=== PATIENT | male | born 1995 | race Caucasian/White ===

== ENCOUNTER 2016-07-29 23:19 | Emergency (ER) | payer BC ==
[~2016-07-29] VITALS: Ht 180.3 cm; Wt 80.0 kg
[~2016-07-29 23:19] MED LIST: CEPH500C3 PO; CIPR500T4 PO; IBUP800T23 PO; METR-1 PO; ZOFR4TAB3 SL
[2016-07-29 23:21] VITALS: BP 137/84; PULSE 118; RESP 16; TEMP 97.6; O2SAT 100
[2016-07-30 01:22] VITALS: BP 124/74; PULSE 117; RESP 18; O2SAT 100
[2016-07-30] MEDS ORDERED: SODIUM CHLORIDE 0.9% FLUSH 5 ML FLUSH IVF PRN (01:30)
[2016-07-30] MEDS ORDERED: diphenhydrAMINE HCL 50 MG/ML VIAL IVP ONE (01:30)
[2016-07-30] MEDS ORDERED: methylPREDNISolone SOD SUCC 125 MG/2 ML VIAL IVP ONE (01:30)
--- NOTE | 2016-07-30 01:31 | PD ---
HPI Chief Complaint: Numbness/Tingling Time Seen by Provider: 01:25 Travel History International Travel<30 days: No Contact w/Intl Traveler<30days: No Traveled to known affect area: No History of Present Illness HPI 20-year-old male with history of no significant past medical issues, presents to the ER today because he states he was eating pretzels tonight and started having numbness in the left corner of his mouth and swelling in that area and tingling. He states that it got worse for a while and now has an subsiding in the ER. He denies any rash, shortness of breath, difficulty swallowing, or any other symptoms. He has had the same pretzels in the past without reaction. He does not know any other new foods or exposures. Modifying Factors: None Associated Signs & Symptoms: Swelling, numbness and tingling in the left corner of his lips Risk Factors: None PFSH Past Medical History Medical History: Denies Significant Hx Diminished Hearing: No Immunizations Current: Yes Social History Alcohol Use: No Tobacco Use: No Substance Use: No Allergies-Medications (Allergen,Severity, Reaction): Coded Allergies: No Known Allergies (Unverified , 07/29/16) Reported Meds & Prescriptions Reported Meds & Active Scripts Active Review of Systems Except as stated in HPI: all other systems reviewed are Neg Physical Exam Narrative GENERAL: Well-nourished, well-developed young white male patient in no acute distress. SKIN: Warm and dry. HEAD: Normocephalic. EYES: No scleral icterus. No injection or drainage. ENT: Mucosa pink and moist. No erythema or exudates. No uvular edema. No uvular , palatal, or tonsillar deviation. Airway patent. No signs of angioedema. NECK: Supple, trachea midline. CARDIOVASCULAR: Regular rate and rhythm without murmurs, gallops, or rubs. RESPIRATORY: Breath sounds equal bilaterally. No accessory muscle use. GASTROINTESTINAL: Abdomen soft, non-tender, nondistended. MUSCULOSKELETAL: No cyanosis, or edema. BACK: Nontender without obvious deformity. No CVA tenderness. Data Data Last Documented VS Vital Signs Date Time Temp Pulse Resp B/P Pulse Ox O2 Delivery O2 Flow Rate FiO2 07/30/16 01:22 117 18 124/74 100 Room Air 07/29/16 23:21 97.6 Orders Basic Metabolic Panel (Bmp) (07/30/16 01:25) Ecg Monitoring (07/30/16 01:25) Iv Access Insert/Monitor (07/30/16 01:25) Oximetry (07/30/16 01:25) Diphenhydramine Inj (Benadryl Inj) (07/30/16 01:30) Methylprednisolone So Succ Inj (Solumedr (07/30/16 01:30) Sodium Chloride 0.9% Flush (Ns Flush) (07/30/16 01:30) Labs Laboratory Tests Test 07/30/16 01:25 Sodium Level 142 MEQ/L Potassium Level 4.0 MEQ/L Chloride Level 106 MEQ/L Carbon Dioxide Level 29.7 MEQ/L Anion Gap 6 MEQ/L Blood Urea Nitrogen 12 MG/DL Creatinine 0.90 MG/DL Estimat Glomerular Filtration 108 ML/MIN Rate Random Glucose 78 MG/DL Calcium Level 8.9 MG/DL MDM Medical Decision Making Medical Screen Exam Complete: Yes Emergency Medical Condition: Yes Medical Record Reviewed: Yes Differential Diagnosis Angioedema versus paresthesia's versus electrolyte abnormalities Narrative Course There are no signs of angioedema. Electrolytes are normal. I have given the patient Solu-Medrol and Benadryl in the ER. He was observed for an hour after having been in the ER for 3 hours already with no signs of worsening in angioedema. At this point, I am not convinced that this is an allergic reaction. However, by the time the patient was seen by me his symptoms had already been subsiding. The plan would be to give him further prednisone and Benadryl as precaution and have him avoid the pretzels for now. Follow-up with primary care physician. Return for any worsening in symptoms as necessary. The plan was discussed with him and he states understanding. Diagnosis Primary Impression: Allergic reaction Med/Other Pt SpecificInfo: Prescription(s) given Scripts Diphenhydramine (Benadryl Allergy)25 Mg Tab25 Mg PO Q6H PRN (ALLERGIES) #15 TAB Ref 0 Prov:Douglas Marroquin MD 07/30/16 Prednisone 50 Mg Tab50 Mg PO DAILY #3 TAB Ref 0 Prov:Douglas Marroquin MD 07/30/16 Disposition: DISCHARGE HOME Condition: Stable Douglas Marroquin MD Jul 30, 2016 01:31
[2016-07-30 02:15] LABS: BICARBONATE 29.7 MEQ/L (21.0-32.0)
[2016-07-30] MEDS ORDERED: PRED50 PO (02:32)
[2016-07-30] MEDS ORDERED: BENA25TA3 PO (02:32)
[2016-07-30 03:16] VITALS: BP 107/55
== END 2016-07-30 03:15 | disposition home or self-care (01) ==
LOC: NEPC 23:19
DX: T78.40XA Allergy, unspecified, initial encounter (principal); R22.0 Localized swelling, mass and lump, head; R20.2 Paresthesia of skin
CPT/HCPCS: 80048; 96374; 96375; 99284; J1200; J2930

== ENCOUNTER 2017-11-04 21:16 | Emergency (ER) | payer BC ==
[~2017-11-04] VITALS: Ht 180.3 cm; Wt 80.0 kg
[~2017-11-04 21:16] MED LIST changes: +BENA25TA3 PO; -CEPH500C3 PO; -CIPR500T4 PO; -IBUP800T23 PO; -METR-1 PO; +PRED50 PO; -ZOFR4TAB3 SL
[2017-11-04 21:44] VITALS: BP 156/82; PULSE 120; RESP 16; TEMP 98.1; O2SAT 99
[2017-11-04] MEDS ORDERED: ALPR.5 PO (21:44)
[2017-11-04] MEDS ORDERED: SODIUM CHLOR 0.9% 1000 ML INJ 1,000 ML IV SCH (22:03)
[2017-11-04 22:07] VITALS: RESP 24; O2SAT 100
--- NOTE | 2017-11-04 22:13 | PD ---
HPI Chief Complaint: Cardiac Complaint Time Seen by Provider: 21:49 Travel History International Travel<30 days: No Contact w/Intl Traveler<30days: No Traveled to known affect area: No History of Present Illness HPI This is a 22-year-old male who presents for evaluation of rapid heart rate and shortness of breath. He reports over the past 5 days he has had intermittent episodes the last 1-3 hours at a time which he feels rapid heart rate with associated dyspnea. Current episode started 3 hours prior to arrival and he was watching TV and eating cake. Symptoms are moderate with no obvious aggravating or relieving factors. Reports some associated dry mouth as well. He tried using a old tablet of Xanax that he had from several years ago but symptoms persisted which prompted evaluation. He denies chest pain, abdominal pain, nausea or vomiting, fevers or chills, myalgias, leg swelling. He reports that he did just return from a road trip to [place] in [place]. He reports that he was in the car for several hours a day during this time. He denies any use of caffeine products in the past week. He denies any illicit drug use. He has no other complaints at this time. [facility] Past Medical History Anxiety: Yes Diminished Hearing: No Immunizations Current: Yes Tetanus Vaccination: Unknown Influenza Vaccination: No Social History Alcohol Use: No Tobacco Use: No Substance Use: No Allergies-Medications (Allergen,Severity, Reaction): Coded Allergies: No Known Allergies (Unverified Adverse Reaction, Unknown, 11/04/17) Reported Meds & Prescriptions Reported Meds & Active Scripts Active Reported Xanax (Alprazolam) 0.5 Mg Tab 0.5 Mg PO Q4H PRN Review of Systems Except as stated in HPI: all other systems reviewed are Neg Physical Exam Narrative GENERAL: This is a well-developed well-nourished male who appears anxious on initial examination. SKIN: Warm and dry. HEAD: Atraumatic. Normocephalic. EYES: Pupils equal and round. No scleral icterus. No injection or drainage. ENT: No nasal bleeding or discharge. Mucous membranes pink and moist. NECK: Trachea midline. No JVD. CARDIOVASCULAR: Regular rate and rhythm. No murmur appreciated. RESPIRATORY: No accessory muscle use. Clear to auscultation. Breath sounds equal bilaterally. GASTROINTESTINAL: Abdomen soft, non-tender, nondistended. Hepatic and splenic margins not palpable. MUSCULOSKELETAL: No obvious deformities. No clubbing. No cyanosis. No edema. NEUROLOGICAL: Awake and alert. No obvious cranial nerve deficits. Motor grossly within normal limits. Normal speech. Data Data Last Documented VS Vital Signs Date Time Temp Pulse Resp B/P (MAP) Pulse Ox O2 Delivery O2 Flow Rate FiO2 11/04/17 22:07 24 100 Room Air 11/04/17 21:46 120 11/04/17 21:44 98.1 156/82 (106) Orders Orders Electrocardiogram (11/04/17 22:03) Basic Metabolic Panel (Bmp) (11/04/17 22:03) Complete Blood Count With Diff (11/04/17 22:03) D-Dimer (11/04/17 22:03) Magnesium (Mg) (11/04/17 22:03) Chest, Single Ap (11/04/17 22:03) Ecg Monitoring (11/04/17 22:03) Bilateral Bp Monitoring (11/04/17 22:03) Iv Access Insert/Monitor (11/04/17 22:03) Oximetry (11/04/17 22:03) Oxygen Administration (11/04/17 22:03) Sodium Chloride 0.9% Flush (Ns Flush) (11/04/17 22:15) Thyroid Stimulating Hormone (11/04/17 22:03) Lorazepam Inj (Ativan Inj) (11/04/17 22:15) Sodium Chlor 0.9% 1000 Ml Inj (Ns 1000 M (11/04/17 22:03) Drug Screen, Random Urine (11/04/17 22:03) Potassium Chloride (Kcl) (11/04/17 23:00) Ed Discharge Order (11/04/17 22:59) Labs Laboratory Tests Test 11/04/17 22:00 11/04/17 22:05 White Blood Count 8.4 TH/MM3 Red Blood Count 5.06 MIL/MM3 Hemoglobin 15.1 GM/DL Hematocrit 43.8 % Mean Corpuscular Volume 86.6 FL Mean Corpuscular Hemoglobin 29.9 PG Mean Corpuscular Hemoglobin Concent 34.5 % Red Cell Distribution Width 13.3 % Platelet Count 214 TH/MM3 Mean Platelet Volume 9.2 FL Neutrophils (%) (Auto) 69.4 % Lymphocytes (%) (Auto) 20.3 % Monocytes (%) (Auto) 8.2 % Eosinophils (%) (Auto) 1.7 % Basophils (%) (Auto) 0.4 % Neutrophils # (Auto) 5.8 TH/MM3 Lymphocytes # (Auto) 1.7 TH/MM3 Monocytes # (Auto) 0.7 TH/MM3 Eosinophils # (Auto) 0.1 TH/MM3 Basophils # (Auto) 0.0 TH/MM3 CBC Comment DIFF FINAL Differential Comment D-Dimer Quantitative (PE/DVT) LESS THAN 0.19 MG/L FEU Blood Urea Nitrogen 12 MG/DL Creatinine 0.99 MG/DL Random Glucose 125 MG/DL Calcium Level 9.3 MG/DL Magnesium Level 2.1 MG/DL Sodium Level 139 MEQ/L Potassium Level 3.2 MEQ/L Chloride Level 103 MEQ/L Carbon Dioxide Level 27.6 MEQ/L Anion Gap 8 MEQ/L Estimat Glomerular Filtration Rate 95 ML/MIN Thyroid Stimulating Hormone 3rd Gen 2.120 uIU/ML Urine Opiates Screen NEG Urine Barbiturates Screen NEG Urine Amphetamines Screen NEG Urine Benzodiazepines Screen NEG Urine Cocaine Screen NEG Urine Cannabinoids Screen NEG MDM Medical Decision Making Medical Screen Exam Complete: Yes Emergency Medical Condition: Yes Medical Record Reviewed: Yes Differential Diagnosis Anxiety, sinus tachycardia, PVCs, PACs, atrial fibrillation, pulmonary embolism , spontaneous pneumothorax, sympathomimetic drug abuse, anticholinergic syndrome , electrolyte abnormality Narrative Course 20-year-old male presents with intermittent rapid heart rate and shortness of breath for the past 3 days. On initial examination he does appear anxious, he requests that we do not allow him to . The patient was placed on ECG monitoring pulse oximetry. A 12 EKG was obtained revealing sinus tachycardia with a rate of 110, incomplete right bundle branch block. Lab work, chest x- ray been ordered. The patient will be given IV fluids and Ativan. 2300: Upon reexamination the patient does feel improved, he still feels slightly anxious. His heart rate is 100. His lab work is been reviewed. His potassium is 3.4 otherwise his lab work is unremarkable. He was given 40 mEq of potassium chloride. His chest x-ray is normal. At this point in time the plan would be to have him follow-up tomorrow as scheduled with a new primary care physician. He will be given a copy of his lab work. Discussed signs and symptoms that would warrant returning to the emergency room. Diagnosis Primary Impression: Tachycardia Additional Impressions: Anxiety Hypokalemia Additional Instructions: Please provide the patient a copy of all of his lab work upon discharge. Follow-up with primary care physician as scheduled. Avoid caffeinated substances. Return for any acutely new or worsening symptoms. Med/Other Pt SpecificInfo: No Change to Meds Disposition: 01 DISCHARGE HOME Condition: Stable Gamal Centeno Nov 04, 2017 22:13
[2017-11-04] MEDS ORDERED: LORazepam 2 MG/ML VIAL IV PUSH ONE (22:15)
[2017-11-04] MEDS ORDERED: SODIUM CHLORIDE 0.9% FLUSH 10 ML FLUSH IVF PRN (22:15)
--- NOTE | 2017-11-04 22:25 | RADRPT ---
EXAM DATE: 11/04/2017 10:22 PM EDT AGE/SEX: 22 years / Male INDICATIONS: Shortness of breath and chest pain. CLINICAL DATA: This is the patient's initial encounter. Patient reports that signs and symptoms have been present for 4 - 6 days and indicates a pain score of 5/10. MEDICAL/SURGICAL HISTORY: None. None. COMPARISON: No prior exams available for comparison. FINDINGS: A single AP view of the chest demonstrates the lungs to be symmetrically aerated without evidence of mass, infiltrate or effusion. The cardiomediastinal contours are unremarkable. Osseous structures a re intact. CONCLUSION: Negative for acute process Electronically signed by: Elias Soto MD 11/04/2017 10:23 PM EDT
[2017-11-04 22:27] LABS: AUTOMATED NEUTROPHIL # 5.8 TH/MM3 (1.8-7.7); BASOPHIL % 0.4 % (0.0-2.0); EOSINOPHIL # 0.1 TH/MM3 (0-0.4); EOSINOPHIL % 1.7 % (0.0-4.0); HEMATOCRIT 43.8 % (39.0-51.0); HEMOGLOBIN 15.1 GM/DL (13.0-17.0); LYMPH % 20.3 % (9.0-44.0); LYMPHOCYTE # 1.7 TH/MM3 (1.0-4.8); MEAN CELL VOLUME 86.6 FL (80.0-100.0); MEAN CORPUSCULAR HEMOGLOBIN 29.9 PG (27.0-34.0); MEAN CORPUSCULAR HGB CONC 34.5 % (32.0-36.0); MEAN PLATELET VOLUME 9.2 FL (7.0-11.0); MONO % 8.2 % (0.0-8.0); MONOCYTE # 0.7 TH/MM3 (0-0.9); NEUT % 69.4 % (16.0-70.0); PLATELET COUNT 214 TH/MM3 (150-450); RED BLOOD COUNT 5.06 MIL/MM3 (4.50-5.90); RED CELL DISTRIBUTION WIDTH 13.3 % (11.6-17.2); WHITE BLOOD COUNT 8.4 TH/MM3 (4.0-11.0)
[2017-11-04 22:44] LABS: BICARBONATE 27.6 MEQ/L (21.0-32.0); CALCIUM 9.3 MG/DL (8.5-10.1); CREATININE 0.99 MG/DL (0.60-1.30); MAGNESIUM 2.1 MG/DL (1.5-2.5)
[2017-11-04] MEDS ORDERED: POTASSIUM CHLORIDE 20 MEQ CONTROLLED RELEASE TAB PO ONE (23:00)
--- NOTE | 2017-11-04 23:13 | PD ---
Data Data Last Documented VS Vital Signs Date Time Temp Pulse Resp B/P (MAP) Pulse Ox O2 Delivery O2 Flow Rate FiO2 11/04/17 22:07 24 100 Room Air 11/04/17 21:46 120 11/04/17 21:44 98.1 156/82 (106) Orders Orders Electrocardiogram (11/04/17 22:03) Basic Metabolic Panel (Bmp) (11/04/17 22:03) Complete Blood Count With Diff (11/04/17 22:03) D-Dimer (11/04/17 22:03) Magnesium (Mg) (11/04/17 22:03) Chest, Single Ap (11/04/17 22:03) Ecg Monitoring (11/04/17 22:03) Bilateral Bp Monitoring (11/04/17 22:03) Iv Access Insert/Monitor (11/04/17 22:03) Oximetry (11/04/17 22:03) Oxygen Administration (11/04/17 22:03) Sodium Chloride 0.9% Flush (Ns Flush) (11/04/17 22:15) Thyroid Stimulating Hormone (11/04/17 22:03) Lorazepam Inj (Ativan Inj) (11/04/17 22:15) Sodium Chlor 0.9% 1000 Ml Inj (Ns 1000 M (11/04/17 22:03) Drug Screen, Random Urine (11/04/17 22:03) Potassium Chloride (Kcl) (11/04/17 23:00) Ed Discharge Order (11/04/17 22:59) Labs Laboratory Tests Test 11/04/17 22:00 11/04/17 22:05 White Blood Count 8.4 TH/MM3 Red Blood Count 5.06 MIL/MM3 Hemoglobin 15.1 GM/DL Hematocrit 43.8 % Mean Corpuscular Volume 86.6 FL Mean Corpuscular Hemoglobin 29.9 PG Mean Corpuscular Hemoglobin Concent 34.5 % Red Cell Distribution Width 13.3 % Platelet Count 214 TH/MM3 Mean Platelet Volume 9.2 FL Neutrophils (%) (Auto) 69.4 % Lymphocytes (%) (Auto) 20.3 % Monocytes (%) (Auto) 8.2 % Eosinophils (%) (Auto) 1.7 % Basophils (%) (Auto) 0.4 % Neutrophils # (Auto) 5.8 TH/MM3 Lymphocytes # (Auto) 1.7 TH/MM3 Monocytes # (Auto) 0.7 TH/MM3 Eosinophils # (Auto) 0.1 TH/MM3 Basophils # (Auto) 0.0 TH/MM3 CBC Comment DIFF FINAL Differential Comment D-Dimer Quantitative (PE/DVT) LESS THAN 0.19 MG/L FEU Blood Urea Nitrogen 12 MG/DL Creatinine 0.99 MG/DL Random Glucose 125 MG/DL Calcium Level 9.3 MG/DL Magnesium Level 2.1 MG/DL Sodium Level 139 MEQ/L Potassium Level 3.2 MEQ/L Chloride Level 103 MEQ/L Carbon Dioxide Level 27.6 MEQ/L Anion Gap 8 MEQ/L Estimat Glomerular Filtration Rate 95 ML/MIN Thyroid Stimulating Hormone 3rd Gen 2.120 uIU/ML Urine Opiates Screen NEG Urine Barbiturates Screen NEG Urine Amphetamines Screen NEG Urine Benzodiazepines Screen NEG Urine Cocaine Screen NEG Urine Cannabinoids Screen NEG MDM Supervised Visit with REUBEN: Yes Narrative Course The history, exam, and medical decision-making in the associated mid-level provider note were completed with my assistance. I reviewed and agree with the findings presented. I attest that I had a [id number] encounter with the patient on the same day, and personally performed and documented my assessment and findings in the medical record. *My assessment and Findings: While 22-year-old male, anxiety palpitations feeling funny. Etiology is unclear. Heart rate is sinus tach elevated 120. Looks well. No thyroid disease. No DVT or PE. Patient is a history of anxiety but has not had trouble in years. Does not feel like he has been more anxious recently. His appointment with his primary care physician tomorrow. Heart rate improved after fluids and a dose of Ativan here. Recommend close outpatient follow-up as planned with his primary physician. Diagnosis Primary Impression: Tachycardia Additional Impressions: Anxiety Hypokalemia Additional Instruction: Please provide the patient a copy of all of his lab work upon discharge. Follow-up with primary care physician as scheduled. Avoid caffeinated substances. Return for any acutely new or worsening symptoms. Disposition: 01 DISCHARGE HOME Condition: Stable Jozef Griffith MD Nov 04, 2017 23:13
[2017-11-05 00:27] VITALS: PULSE 95
--- NOTE | 2017-11-05 09:08 | EKG ---
Date Performed: 11/04/2017 Time Performed: 21:52:30 PTAGE: 22 years EKG: SINUS TACHYCARDIA SINUS ARRYTHMIA INCOMPLETE RIGHT BUNDLE BRANCH BLOCK ABNORMAL RHYTHM ECG NO PREVIOUS TRACING DOCTOR: Jozef Feliciano Interpretating Date/Time 11/05/2017 09:07:32
== END 2017-11-05 00:31 | disposition home or self-care (01) ==
LOC: NEPC 21:16
DX: R00.0 Tachycardia, unspecified (principal); F41.9 Anxiety disorder, unspecified; E87.6 Hypokalemia; R06.02 Shortness of breath; Z79.899 Other long term (current) drug therapy
CPT/HCPCS: 71045; 80048; 80307; 83735; 84443; 85025; 85379; 93005; 96361; 96374; 99285; J2060; J7030

== ENCOUNTER 2017-11-12 07:56 | Emergency (ER) | payer BC ==
[~2017-11-12] VITALS: Ht 180.3 cm; Wt 80.0 kg
[~2017-11-12 07:56] MED LIST changes: +ALPR.5 PO; -BENA25TA3 PO; -PRED50 PO
[2017-11-12 07:58] VITALS: BP 142/97; PULSE 108; RESP 20; TEMP 98.3; O2SAT 100
[2017-11-12 08:22] VITALS: BP 143/103; PULSE 94; RESP 18; O2SAT 99
--- NOTE | 2017-11-12 08:47 | PD ---
HPI Chief Complaint: Respiratory Symptoms Time Seen by Provider: 08:32 Travel History International Travel<30 days: No Contact w/Intl Traveler<30days: No Traveled to known affect area: No History of Present Illness HPI Patient presents to the emergency department complaining of dizziness and shortness of breath. Also reports constipation 3 days. States that a week and a half ago he was waterskiing and fell and had a frontal headache. Did not pass out and did not seek follow-up care. Says that he feels like the right side of his forehead is moving, questionable vertigo/room spinning. Normal gait and tinnitus which is normal for him. Denies chest pain, fever, chills, nausea , vomiting, vision change, numbness, tingling, lower extremity edema, but states that his face feels hot in his neck with throbbing anterior leaf for the past week. Also reports recent travel one half weeks ago, he did both a [address] Patient has a history of anxiety and has been increased anxiety attacks in the past couple weeks. States that the shortness of breath could have been an anxiety attack triggered by the vertigo. PFSH Past Medical History Atrial Fibrillation: Yes Anxiety: Yes Diminished Hearing: No Integumentary: Yes (acne) Immunizations Current: Yes Tetanus Vaccination: Unknown Influenza Vaccination: Yes Social History Alcohol Use: No Tobacco Use: No Substance Use: No Allergies-Medications (Allergen,Severity, Reaction): Coded Allergies: No Known Allergies (Unverified Adverse Reaction, Unknown, 11/04/17) Reported Meds & Prescriptions Reported Meds & Active Scripts Active Meclizine (Meclizine HCl) 25 Mg Tab 25 Mg PO Q6HR PRN 3 Days Reported Xanax (Alprazolam) 0.5 Mg Tab 0.5 Mg PO Q4H PRN Review of Systems Except as stated in HPI: all other systems reviewed are Neg Physical Exam Narrative GENERAL: No acute distress. SKIN: Focused skin assessment warm/dry. HEAD: Atraumatic. Normocephalic. EYES: Pupils dilated and equal and round. No scleral icterus. Intraocular muscles intact bilaterally. No injection or drainage. ENT: No nasal bleeding or discharge. Mucous membranes pink and moist. Normal TMs bilaterally NECK: Trachea midline. No JVD. Supple, full range of motion. CARDIOVASCULAR: Regular rate and rhythm. No murmur appreciated. RESPIRATORY: No accessory muscle use. Clear to auscultation. Breath sounds equal bilaterally. GASTROINTESTINAL: Abdomen soft, non-tender, nondistended. Hepatic and splenic margins not palpable. MUSCULOSKELETAL: No obvious deformities. No clubbing. No cyanosis. No edema. NEUROLOGICAL: Awake and alert. No obvious cranial nerve deficits. Motor grossly within normal limits. Normal speech. 5 out of 5 bilateral upper and lower extremity. PSYCHIATRIC: Appropriate mood and affect; insight and judgment normal. Data Data Last Documented VS Vital Signs Date Time Temp Pulse Resp B/P (MAP) Pulse Ox O2 Delivery O2 Flow Rate FiO2 11/12/17 08:49 99 Room Air 11/12/17 08:22 72 18 11/12/17 07:58 98.3 Orders Orders Electrocardiogram (11/12/17 08:42) Complete Blood Count With Diff (11/12/17 08:42) Comprehensive Metabolic Panel (11/12/17 08:42) Ckmb (Isoenzyme) Profile (11/12/17 08:42) Troponin I (11/12/17 08:42) Prothrombin Time / Inr (Pt) (11/12/17 08:42) Act Partial Throm Time (Ptt) (11/12/17 08:42) Urinalysis - C+S If Indicated (11/12/17 08:42) D-Dimer (11/12/17 08:42) Chest, Single Ap (11/12/17 08:42) Ct Brain W/O Iv Contrast(Rout) (11/12/17 08:42) Iv Access Insert/Monitor (11/12/17 08:42) Ecg Monitoring (11/12/17 08:42) Oximetry (11/12/17 08:42) Drug Screen, Random Urine (11/12/17 08:42) Meclizine (Antivert) (11/12/17 10:15) Labs Laboratory Tests Test 11/12/17 08:55 White Blood Count 5.4 TH/MM3 Red Blood Count 5.25 MIL/MM3 Hemoglobin 15.6 GM/DL Hematocrit 45.8 % Mean Corpuscular Volume 87.3 FL Mean Corpuscular Hemoglobin 29.7 PG Mean Corpuscular Hemoglobin Concent 34.0 % Red Cell Distribution Width 13.4 % Platelet Count 203 TH/MM3 Mean Platelet Volume 9.3 FL Neutrophils (%) (Auto) 61.2 % Lymphocytes (%) (Auto) 26.3 % Monocytes (%) (Auto) 9.9 % Eosinophils (%) (Auto) 2.1 % Basophils (%) (Auto) 0.5 % Neutrophils # (Auto) 3.3 TH/MM3 Lymphocytes # (Auto) 1.4 TH/MM3 Monocytes # (Auto) 0.5 TH/MM3 Eosinophils # (Auto) 0.1 TH/MM3 Basophils # (Auto) 0.0 TH/MM3 CBC Comment DIFF FINAL Differential Comment Prothrombin Time 10.6 SEC Prothromb Time International Ratio 1.0 RATIO Activated Partial Thromboplast Time 26.8 SEC D-Dimer Quantitative (PE/DVT) LESS THAN 0.19 MG/L FEU Urine Color Straw Urine Turbidity CLEAR Urine pH 7.0 Urine Specific Gray 1.003 Urine Protein NEG mg/dL Urine Glucose (UA) NEG mg/dL Urine Ketones NEG mg/dL Urine Occult Blood NEG Urine Nitrite NEG Urine Bilirubin NEG Urine Urobilinogen LESS THAN 2 mg/dL Urine Leukocyte Esterase NEG Urine RBC LESS THAN 1 /hpf Urine WBC LESS THAN 1 /hpf Microscopic Urinalysis Comment CULT NOT INDICATED Blood Urea Nitrogen 8 MG/DL Creatinine 0.94 MG/DL Random Glucose 92 MG/DL Total Protein 7.9 GM/DL Albumin 4.6 GM/DL Calcium Level 9.6 MG/DL Alkaline Phosphatase 92 U/L Aspartate Amino Transf (AST/SGOT) 19 U/L Alanine Aminotransferase (ALT/SGPT) 42 U/L Total Bilirubin 0.3 MG/DL Sodium Level 139 MEQ/L Potassium Level 3.7 MEQ/L Chloride Level 103 MEQ/L Carbon Dioxide Level 26.4 MEQ/L Anion Gap 10 MEQ/L Estimat Glomerular Filtration Rate 100 ML/MIN Total Creatine Kinase 83 U/L Troponin I LESS THAN 0.02 NG/ML Urine Opiates Screen NEG Urine Barbiturates Screen NEG Urine Amphetamines Screen NEG Urine Benzodiazepines Screen NEG Urine Cocaine Screen NEG Urine Cannabinoids Screen NEG [facility] Medical Decision Making Medical Screen Exam Complete: Yes Emergency Medical Condition: Yes Interpretation(s) ECG: Sinus rhythm, 73, intervals, TC 383, axis, LVH, incomplete right bundle branch block Labs: cbc wnl, coags and d-dimer within normal limits, UA negative, UDS negative , chemistry within normal limits Last Impressions Head CT 11/12/17 0842 Signed Impressions: CONCLUSION: Negative noncontrasted CT examination. Chest X-Ray 11/12/17 0842 Signed Impressions: CONCLUSION: No acute cardiopulmonary process. Differential Diagnosis PE, pulmonary edema, effusion, concussion, intracranial mass, ICH, vertigo Narrative Course Patient presents to the emergency department complaining of dizziness and difficulty breathing. He was placed on the monitoring manager, IV access obtained , and EKG/chest x-ray/head CT/labs ordered. 1003: Patient reports feeling as if he spinning. Given a dose of meclizine 25 mg p.o. BP 141/79. Diagnosis Primary Impression: Dizziness Additional Impression: Vertigo Referrals: Lawrence Holley MD Additional Instructions: 1. Follow-up with primary care doctor in 24-48 hours. 2. Meds as directed. 3. Return to the ER for fever, vomiting, chest pain, shortness of breath, severe headache, numbness or tingling, slurred speech, or any new/worrisome/worsening symptoms. Med/Other Pt SpecificInfo: Prescription(s) given Scripts Meclizine (Meclizine) 25 Mg Tab 25 MG PO Q6HR Y for VERTIGO for 3 Days, #12 TAB 0 Refills Prov: Amanda Acuna MD 11/12/17 Disposition: 01 DISCHARGE HOME Condition: Stable Amanda Acuna MD Nov 12, 2017 08:47
[2017-11-12 08:49] VITALS: O2SAT 99
--- NOTE | 2017-11-12 08:58 | RADRPT ---
EXAM DATE: 11/12/2017 8:54 AM EDT AGE/SEX: 22 years / Male INDICATIONS: Short of breath. CLINICAL DATA: This is the patient's initial encounter. Patient reports that signs and symptoms have been present for 1 day and indicates a pain score of 0/10. MEDICAL/SURGICAL HISTORY: None. None. COMPARISON: [facility] [place]ST SINGLE AP, 11/04/2017. . FINDINGS: A single AP view of the chest demonstrates the lungs to be symmetrically aerated without evidence of mass, infiltrate or effusion. The cardiomediastinal contours are unremarkable. Osseous structures a re intact. There appear to be calcified granulomas in the spleen. CONCLUSION: No acute cardiopulmonary process. Electronically signed by: Lawrence Curry MD 11/12/2017 8:57 AM EDT
[2017-11-12 09:25] LABS: AUTOMATED NEUTROPHIL # 3.3 TH/MM3 (1.8-7.7); BASOPHIL % 0.5 % (0.0-2.0); EOSINOPHIL # 0.1 TH/MM3 (0-0.4); EOSINOPHIL % 2.1 % (0.0-4.0); HEMATOCRIT 45.8 % (39.0-51.0); HEMOGLOBIN 15.6 GM/DL (13.0-17.0); LYMPH % 26.3 % (9.0-44.0); LYMPHOCYTE # 1.4 TH/MM3 (1.0-4.8); MEAN CELL VOLUME 87.3 FL (80.0-100.0); MEAN CORPUSCULAR HEMOGLOBIN 29.7 PG (27.0-34.0); MEAN PLATELET VOLUME 9.3 FL (7.0-11.0); MONO % 9.9 % (0.0-8.0); MONOCYTE # 0.5 TH/MM3 (0-0.9); NEUT % 61.2 % (16.0-70.0); PLATELET COUNT 203 TH/MM3 (150-450); RED BLOOD COUNT 5.25 MIL/MM3 (4.50-5.90); RED CELL DISTRIBUTION WIDTH 13.4 % (11.6-17.2); WHITE BLOOD COUNT 5.4 TH/MM3 (4.0-11.0)
[2017-11-12 09:29] LABS: BILIRUBIN, URINE NEG (NEG); BLOOD, URINE NEG (NEG); GLUCOSE,URINE NEG (NEG); KETONE, URINE NEG (NEG); NITRITE,URINE NEG (NEG); URINE COLOR Straw (YELLW/STRAW); URINE LEUKOCYTE ESTERASE NEG (NEG)
--- NOTE | 2017-11-12 09:31 | RADRPT ---
EXAM DATE: 11/12/2017 9:04 AM EDT AGE/SEX: 22 years / Male INDICATIONS: Dizziness. CLINICAL DATA: This is the patient's initial encounter. Patient reports that signs and symptoms have been present for 1 day and indicates a pain score of 0/10. MEDICAL/SURGICAL HISTORY: . Atrial fibrillation. None. RADIATION DOSE: 37.09 CTDI (mGy) COMPARISON: No prior exams available for comparison. TECHNIQUE: CT of the head without contrast. Using automated exposure control and adjustment of the mA and/or kV according to patient size, radiation dose was kept as low as reasonably achievable to ob tain optimal diagnostic quality images. DICOM format image data is available electronically for revi ew and comparison. FINDINGS: Cerebrum: The ventricles are normal for age. No evidence of midline shift, mass lesion, hemorrhage or acute infarction. No extraaxial fluid collections are seen. Posterior Fossa: The cerebellum and brainstem are intact. The 4th ventricle is midline. The cerebe llopontine angle is unremarkable. Extracranial: The visualized portion of the orbits is intact. Skull: The calvaria is intact. No evidence of skull fracture. CONCLUSION: Negative noncontrasted CT examination. Electronically signed by: Lawrence Curry MD 11/12/2017 9:30 AM EDT
[2017-11-12 09:36] LABS: PROTHROMBIN TIME - PATIENT 10.6 SEC (9.8-11.6)
[2017-11-12 09:38] LABS: D-DIMER LESS THAN 0.19 MG/L FEU (0.00-0.50)
[2017-11-12 09:41] LABS: ALBUMIN 4.6 GM/DL (3.4-5.0); AST (GOT) 19 U/L (15-37); BICARBONATE 26.4 MEQ/L (21.0-32.0); BLOOD UREA NITROGEN 8 MG/DL (7-18); CALCIUM 9.6 MG/DL (8.5-10.1); CHLORIDE 103 MEQ/L (98-107); CREATININE 0.94 MG/DL (0.60-1.30); GLOMERULAR FILTRATION RATE 100 ML/MIN (>89); GLUCOSE,RANDOM 92 MG/DL (74-106); SODIUM (NA) 139 MEQ/L (136-145)
[2017-11-12 09:42] LABS: ALT (GPT) 42 U/L (12-78)
[2017-11-12 09:45] LABS: ALKALINE PHOSPHATASE 92 U/L (45-117); TOTAL BILIRUBIN ADULT 0.3 MG/DL (0.2-1.0); TOTAL PROTEIN 7.9 GM/DL (6.4-8.2); TROPONIN I LESS THAN 0.02 NG/ML (0.02-0.05)
[2017-11-12] MEDS ORDERED: MECL-62 PO (10:09)
[2017-11-12 10:14] VITALS: BP 141/79; PULSE 70; RESP 18; O2SAT 100
[2017-11-12] MEDS ORDERED: MECLIZINE HCL 25 MG TAB PO ONE (10:15)
--- NOTE | 2017-11-12 13:39 | EKG ---
Date Performed: 11/12/2017 Time Performed: 09:59:55 PTAGE: 22 years EKG: Sinus rhythm INCOMPLETE RIGHT BUNDLE BRANCH BLOCK BORDERLINE ECG PREVIOUS TRACING : 11/04/2017 21.52 DOCTOR: Jozef Feliciano Interpretating Date/Time 11/12/2017 13:37:50
== END 2017-11-12 10:40 | disposition home or self-care (01) ==
LOC: NEPE 07:56
DX: R42 Dizziness and giddiness (principal); R06.02 Shortness of breath; I45.10 Unspecified right bundle-branch block; F41.9 Anxiety disorder, unspecified; I48.91 Unspecified atrial fibrillation; Z79.899 Other long term (current) drug therapy
CPT/HCPCS: 70450; 71045; 80053; 80307; 81001; 82550; 84484; 85025; 85379; 85610; 85730; 93005; 99285